=== PATIENT | male | born 1950 | race Caucasian/White ===

== ENCOUNTER 2019-06-24 16:09 | Inpatient (IN) ==
[2019-06-24] MEDS ORDERED: TYLENOL PO PRN (17:07)
[2019-06-24] MEDS ORDERED: PHENERGAN IV PRN (17:07)
[2019-06-24] MEDS ORDERED: SODIUM CHLORIDE 0.9% INJ PRN (17:07)
[2019-06-24] MEDS: NS 1,000 ML IV SCH (18:03)
[2019-06-24] MEDS: SOLU-MEDROL IV SCH (18:04)
[2019-06-24] MEDS: ROCEPHIN 1 GM in NS 50 ML IV SCH (18:04)
[2019-06-24] MEDS: LOVENOX SUBQ SCH (18:05)
[2019-06-24 18:55] LABS: BASO# 0.02 X1000 (0.0-0.2); BASO% 0.3 % (0.0-0.8); EOS# 0.05 X1000 (0.0-0.7); EOS% 0.9 % (0.0-10.0); HEMATOCRIT 41.8 % (42.0-52.0); HEMOGLOBIN 14.5 g/dL (14.0-18.0); LYMPH# 0.99 X1000 (1.2-3.4); MCH 32.8 PG (27-31); MCHC 34.7 g/dL (33-37); MCV 94.6 FL (81-99); MONO# 0.72 X1000 (0.11-0.59); MONO% 12.4 % (1.7-9.3); MPV 9.8 FL (7.4-10.4); NEUT# 4.04 X1000 (1.4-6.5); NEUT% 69.4 % (42.2-75.2); PLT 121 X1000 (130-400); RBC 4.42 XMIL (4.7-6.1); RDW 12.9 % (11.5-14.5); WBC 5.82 X1000 (4.8-10.8)
[2019-06-24 19:19] LABS: AGAP 15; BUN 10 mg/dL (8-22); CHLORIDE 101 mmol/L (98-107); COSMO 274; CREATININE 0.7 mg/dL (0.7-1.2); ESTIMATED GFR > 60; GLUCOSE 126 mg/dL (70-104); POTASSIUM 4.4 mmol/L (3.5-5.1); SODIUM 137 mmol/L (136-145); TCO2 21 mmol/L (25-35)
[2019-06-24] MEDS: DUONEB (A & A) INH SCH ×2 (19:30→23:12)
[2019-06-24] MEDS: KEPPRA PO SCH (20:34)
[2019-06-24] MEDS: RANEXA PO SCH (20:34)
[2019-06-24] MEDS: DESYREL PO PRN (20:34)
[2019-06-24] MEDS: COREG PO SCH (20:34)
[2019-06-24] MEDS: SYMBICORT 160/4.5 MICROGM INHALER INH SCH (23:12)
[2019-06-25] MEDS: SOLU-MEDROL IV SCH ×3 (00:53→18:04)
[2019-06-25] MEDS: DUONEB (A & A) INH SCH ×6 (03:47→23:23)
[2019-06-25] MEDS: SYMBICORT 160/4.5 MICROGM INHALER INH SCH ×2 (07:47→20:38)
[2019-06-25] MEDS ORDERED: PHENOBARBITAL PO SCH (09:00)
[2019-06-25] MEDS ORDERED: ZETIA PO SCH (09:00)
--- NOTE | 2019-06-25 09:21 | PROGRESS NOTE ---
DATE: 06/25/2019 SUBJECTIVE: Mr. Dugan continues with a persistent cough productive of clear to yellowish sputum, pleuritic chest pain with deep inspiration, mild shortness of breath and low grade fever with a T max of 99.2. Chest x-ray showed infiltrate in the left upper lung rajan. He had been taking Augmentin as an outpatient and has developed explosive watery diarrhea. OBJECTIVE: Vital Signs: Temperature 99.2 degrees, pulse 91, respirations 20, BP 137/76. Cardiovascular: Regular rate and rhythm. Lungs: Rhonchi in the left upper lung rajan with scattered wheezing with forced expiration. Abdomen: Soft, nontender, with active bowel sounds. Extremities: Without edema. ASSESSMENT AND PLAN: 1. Acute chronic obstructive pulmonary disease exacerbation complicated by community-acquired pneumonia. We will continue Symbicort 160/4.5 two puffs b.i.d., DuoNeb nebulizer treatments q.4 hours, IV Solu-Medrol and intravenous Rocephin. I will recheck a PA and lateral chest x- ray in the morning. 2. Diarrhea. I suspect the diarrhea is due to the Augmentin. I will check stool studies to make sure there is no infection. If there is no evidence of infection we will begin Lomotil on a p.r.n. basis. cc: Edwige Olvera MD
[2019-06-25] MEDS: COREG PO SCH ×2 (09:31→20:23)
[2019-06-25] MEDS: PLAVIX PO SCH (09:32)
[2019-06-25] MEDS: COZAAR PO SCH (09:32)
[2019-06-25] MEDS: KEPPRA PO SCH ×2 (09:32→20:23)
[2019-06-25] MEDS: ALDACTONE PO SCH (09:32)
[2019-06-25] MEDS: RANEXA PO SCH ×2 (09:32→20:23)
[2019-06-25] MEDS: FOLIC ACID PO SCH (09:33)
[2019-06-25] MEDS: NS 1,000 ML IV SCH (12:05)
[2019-06-25] MEDS: LOVENOX SUBQ SCH (18:03)
[2019-06-25] MEDS: ROCEPHIN 1 GM in NS 50 ML IV SCH (18:03)
[2019-06-25] MEDS ORDERED: LOMOTIL PO PRN (20:12)
[2019-06-25] MEDS: CRESTOR PO SCH (20:23)
[2019-06-25] MEDS: ZETIA PO SCH (20:23)
[2019-06-25] MEDS: PHENOBARBITAL PO SCH (20:24)
[2019-06-25] MEDS: DESYREL PO PRN (21:17)
[2019-06-26] MEDS: SOLU-MEDROL IV SCH ×3 (01:20→17:17)
[2019-06-26] MEDS: DUONEB (A & A) INH SCH ×5 (03:46→20:08)
[2019-06-26] MEDS: NS 1,000 ML IV SCH ×2 (04:20→17:04)
[2019-06-26] MEDS: SYMBICORT 160/4.5 MICROGM INHALER INH SCH ×2 (07:35→20:08)
[2019-06-26] MEDS ORDERED: FLAGYL PO SCH (08:30)
--- NOTE | 2019-06-26 08:54 | PROGRESS NOTE ---
DATE: 06/26/2019 SUBJECTIVE: Mr. Dugan was admitted to [facility] with an acute chronic obstructive pulmonary disease exacerbation complicated by community-acquired pneumonia. He continues with a persistent nonproductive cough and mild pleuritic chest pain. He is breathing more comfortably. O2 sats are ranging from 92 to 93 percent on room air. He is with complaint of explosive watery diarrhea. Stool studies were positive for C difficile antigen and toxin. OBJECTIVE: Vital Signs: Temperature 98.1 degrees, pulse 88, respirations 18, BP 131/74. CV: Regular rate and rhythm. Lungs: Faint crackles in the left base. Abdomen: Soft, nontender, with active bowel sounds. No hepatosplenomegaly. No abdominal bruits. ASSESSMENT AND PLAN: 1. Acute chronic obstructive pulmonary disease exacerbation with community-acquired pneumonia. We will continue DuoNeb nebulizer treatments, intravenous Solu-Medrol and intravenous Rocephin. I will check a portable chest x-ray today. 2. Clostridium difficile colitis. I will begin Vancocin 250 mg oral every 6 hours and Flagyl 500 mg oral every 6 hours. cc: Edwige Olvera MD
--- NOTE | 2019-06-26 09:06 | Diag Imaging Result Doc PS360 ---
CHEST-PORTABLE - 06/26/2019 INDICATION: acute copd flareup with pneumonia COMPARISON: 06/24/2019 FINDINGS: Stable CABG changes. The lungs are clear. Heart size is normal. No pneumothorax or pleural effusion. IMPRESSION: Negative exam. Electronically signed by Sven Khanna 06/26/2019 9:04 AM
[2019-06-26] MEDS: KEPPRA PO SCH ×2 (10:02→20:40)
[2019-06-26] MEDS: ALDACTONE PO SCH (10:03)
[2019-06-26] MEDS: RANEXA PO SCH ×2 (10:03→20:42)
[2019-06-26] MEDS: COREG PO SCH ×2 (10:03→20:42)
[2019-06-26] MEDS: FOLIC ACID PO SCH (10:03)
[2019-06-26] MEDS: PLAVIX PO SCH (10:03)
[2019-06-26] MEDS: COZAAR PO SCH (10:04)
[2019-06-26] MEDS: FLAGYL PO SCH ×3 (10:07→20:41)
[2019-06-26] MEDS: VANCOCIN PO SCH ×3 (10:07→20:42)
[2019-06-26] MEDS: ROCEPHIN 1 GM in NS 50 ML IV SCH (17:14)
[2019-06-26] MEDS: HUMALOG SUBQ SCH ×2 (17:16→22:15)
[2019-06-26] MEDS: LOVENOX SUBQ SCH (17:17)
[2019-06-26] MEDS: PHENOBARBITAL PO SCH ×2 (20:41→21:12)
[2019-06-26] MEDS: ZETIA PO SCH (20:41)
[2019-06-26] MEDS: CRESTOR PO SCH (20:42)
[2019-06-26] MEDS: DESYREL PO PRN (22:27)
[2019-06-27] MEDS: DUONEB (A & A) INH SCH ×7 (00:01→23:09)
[2019-06-27] MEDS: SOLU-MEDROL IV SCH ×2 (01:10→08:56)
[2019-06-27] MEDS: FLAGYL PO SCH ×4 (01:11→20:39)
[2019-06-27] MEDS: VANCOCIN PO SCH ×4 (01:11→20:38)
[2019-06-27] MEDS: NS 1,000 ML IV SCH (06:42)
[2019-06-27] MEDS: HUMALOG SUBQ SCH ×4 (06:43→22:02)
[2019-06-27] MEDS: COZAAR PO SCH (08:55)
[2019-06-27] MEDS: PLAVIX PO SCH (08:55)
[2019-06-27] MEDS: KEPPRA PO SCH ×2 (08:55→20:39)
[2019-06-27] MEDS: FOLIC ACID PO SCH (08:55)
[2019-06-27] MEDS: ALDACTONE PO SCH (08:55)
[2019-06-27] MEDS: RANEXA PO SCH ×2 (08:55→20:39)
[2019-06-27] MEDS: COREG PO SCH ×2 (08:56→20:39)
--- NOTE | 2019-06-27 10:01 | PROGRESS NOTE ---
DATE: 06/27/2019 SUBJECTIVE: Mr. Dugan is admitted to [facility] with an acute chronic obstructive pulmonary disease exacerbation complicated by community-acquired pneumonia. Clinically, he continues to improve. He has a minimal nonproductive cough. He is breathing comfortably, O2 saturations are ranging from 96 to 98 percent on room air. He had no longer has any pleuritic chest pain. His most recent chest x-ray showed resolution of the pneumonia. He does have C difficile colitis. Stool studies were positive for C difficile toxin and antigen. We started oral Vancocin and Flagyl yesterday. He is having fewer episodes of diarrhea. He denies any crampy abdominal pain. OBJECTIVE: Vital signs: He is afebrile. Vital signs are stable. Cardiovascular: Regular rate and rhythm. Lungs: Clear. Abdomen: Soft, nontender, with active bowel sounds. ASSESSMENT AND PLAN: 1. Acute chronic obstructive pulmonary disease exacerbation with community-acquired pneumonia. His pneumonia has resolved. I am going to stop the Rocephin. I will titrate downward on the Solu-Medrol to 40 mg IV q.12 hours. We will continue Symbicort and nebulizer treatments. 2. Clostridium difficile colitis. We will continue oral Vancocin and Flagyl for total of 2 weeks. I am going to add probiotics b.i.d. cc: Edwige Olvera MD
[2019-06-27] MEDS: CULTURELLE PO SCH ×2 (12:02→20:39)
[2019-06-27] MEDS: SYMBICORT 160/4.5 MICROGM INHALER INH SCH ×2 (16:17→20:04)
[2019-06-27] MEDS: LOVENOX SUBQ SCH (17:08)
[2019-06-27] MEDS: ROCEPHIN 1 GM in NS 50 ML IV SCH (17:08)
[2019-06-27] MEDS: CRESTOR PO SCH (20:39)
[2019-06-27] MEDS: ZETIA PO SCH (20:39)
[2019-06-27] MEDS: PHENOBARBITAL PO SCH (20:56)
[2019-06-27] MEDS ORDERED: SOLU-MEDROL IV SCH (21:00)
[2019-06-27] MEDS: DESYREL PO PRN (21:04)
[2019-06-28] MEDS: NS 1,000 ML IV SCH ×3 (00:57→20:27)
[2019-06-28] MEDS: FLAGYL PO SCH ×4 (02:47→20:22)
[2019-06-28] MEDS: VANCOCIN PO SCH ×4 (02:48→20:22)
[2019-06-28] MEDS: DUONEB (A & A) INH SCH ×5 (03:07→19:40)
[2019-06-28] MEDS: HUMALOG SUBQ SCH ×4 (06:20→21:00)
[2019-06-28] MEDS: ALDACTONE PO SCH (09:51)
[2019-06-28] MEDS: COZAAR PO SCH (09:51)
[2019-06-28] MEDS: PLAVIX PO SCH (09:51)
[2019-06-28] MEDS: KEPPRA PO SCH ×2 (09:51→20:22)
[2019-06-28] MEDS: COREG PO SCH ×2 (09:51→20:22)
[2019-06-28] MEDS: FOLIC ACID PO SCH (09:51)
[2019-06-28] MEDS: CULTURELLE PO SCH ×2 (09:52→20:21)
[2019-06-28] MEDS: ACTOS PO SCH (09:52)
[2019-06-28] MEDS: RANEXA PO SCH ×2 (09:54→20:22)
--- NOTE | 2019-06-28 10:02 | PROGRESS NOTE ---
DATE: 06/28/2019 SUBJECTIVE: Mr. Dugan was admitted to with acute chronic obstructive pulmonary disease exacerbation complicated by community-acquired pneumonia. Clinically, he continues to improve. He still has a minimal sporadic cough. He is breathing comfortably. O2 saturations are in the range of 94% to 97% on room air. He has C difficile colitis. He only had 4 loose stools yesterday. The stools are still watery with some semi-formed elements. He denies any nausea, vomiting or crampy abdominal pain. Appetite is still poor. Blood sugars are fluctuating. His sugars are ranging from 185 to 215. He is off metformin. OBJECTIVE: Vital Signs: Temperature 98.7 degrees, pulse 73, respirations 17, and blood pressure 140/76. Cardiovascular: Regular rate and rhythm. Lungs: Clear. Abdomen: Soft, nontender, with active bowel sounds. ASSESSMENT AND PLAN: 1. Acute chronic obstructive pulmonary disease exacerbation with community-acquired pneumonia. The pneumonia has resolved. We will continue Symbicort 2 puffs b.i.d. and DuoNeb nebulizer treatments. 2. Clostridium difficile colitis. We will continue oral Vancocin and Flagyl for a period of two weeks. I really would like to see the diarrhea resolved prior to discharge. 3. Type 2 exc-afbsvld-menveaeho diabetes mellitus. We will add Actos 30 mg daily. Continue pattern sugars and Humulin R sliding scale. cc: Edwige Olvera MD
[2019-06-28] MEDS: SYMBICORT 160/4.5 MICROGM INHALER INH SCH ×2 (16:31→19:40)
[2019-06-28] MEDS: LOVENOX SUBQ SCH (17:48)
[2019-06-28] MEDS: ROCEPHIN 1 GM in NS 50 ML IV SCH (17:48)
[2019-06-28] MEDS: ZETIA PO SCH (20:22)
[2019-06-28] MEDS: PHENOBARBITAL PO SCH (20:22)
[2019-06-28] MEDS: CRESTOR PO SCH (20:22)
[2019-06-29] MEDS: FLAGYL PO SCH ×2 (01:40→09:49)
[2019-06-29] MEDS: VANCOCIN PO SCH ×2 (01:40→09:48)
[2019-06-29] MEDS: DUONEB (A & A) INH SCH ×3 (03:29→11:03)
[2019-06-29] MEDS: HUMALOG SUBQ SCH ×2 (06:14→11:00)
[2019-06-29 07:58] VITALS: BP 138/87
[2019-06-29] MEDS: KEPPRA PO SCH (09:48)
[2019-06-29] MEDS: CULTURELLE PO SCH (09:49)
[2019-06-29] MEDS: RANEXA PO SCH (09:49)
[2019-06-29] MEDS: PLAVIX PO SCH (09:49)
[2019-06-29] MEDS: ACTOS PO SCH (09:49)
[2019-06-29] MEDS: FOLIC ACID PO SCH (09:49)
[2019-06-29] MEDS: ALDACTONE PO SCH (09:49)
[2019-06-29] MEDS: COREG PO SCH (09:49)
[2019-06-29] MEDS: COZAAR PO SCH (09:50)
[2019-06-29] MEDS ORDERED: PNEUMOVAX 23 IM ONE (10:50)
[2019-06-29] MEDS ORDERED: PREVNAR 13 IM ONE (11:03)
[2019-06-29] MEDS: SYMBICORT 160/4.5 MICROGM INHALER INH SCH (11:04)
--- NOTE | 2019-06-29 15:55 | DISCHARGE SUMMARY ---
ADMISSION DATE: 06/24/2019 DISCHARGE DATE: 06/29/2019 DISCHARGE DIAGNOSES: 1. Acute chronic obstructive pulmonary disease exacerbation with community-acquired pneumonia. 2. Clostridium difficile colitis. 3. Essential hypertension. 4. Ischemic heart disease without unstable angina. 5. Mixed hyperlipidemia. 6. Type 2 mvj-yzyltsn-mpoxifvyv diabetes mellitus uncomplicated. 7. Seizure disorder. DISCHARGE INSTRUCTIONS: 1. Return to clinic to see me, Dr. Sumanth Olvera, in 7 to 10 days for transition of care visit. 2. Activity as tolerated. 3. 1800 calorie ADA diet. MEDICATIONS: Metronidazole 500 mg q.6 hours for 11 days, Vancocin 250 mg q.6 hours for 11 days, Symbicort 160/4.5 two puffs b.i.d., Coreg 25 mg b.i.d., Plavix 75 mg daily, Zetia 10 mg daily, folic acid 1 mg daily, Culturelle 1 packet b.i.d., Keppra 500 mg b.i.d., losartan 25 mg daily, phenobarbital 32.4 mg at night, Ranexa 500 mg b.i.d., Crestor 40 mg at bedtime, spironolactone 25 mg daily, trazodone 50 mg at bedtime p.r.n. insomnia. DISCHARGE PHYSICAL EXAM: This is a well-developed, well-nourished 69-year-old gentleman no apparent distress. He is afebrile. Pulse 79, respirations 18, BP 138/87. CV: Regular rate and rhythm. Lungs: Clear. Abdomen: Soft, nontender, with active bowel sounds. Mr. Manuela Dugan presented to the office complaining of increasing shortness of breath, increasing work of breathing, cough productive of yellowish sputum, pleuritic chest pain and fevers high as 101 degrees. A chest x-ray demonstrated a left upper lobe infiltrate. The patient was admitted to [facility] where I treated him with supplemental O2, IV Solu-Medrol, DuoNeb nebulizer treatments and intravenous Rocephin. Over the course of the next several days we were able to wean him off O2 steroids without regression of his symptoms. Followup chest x-rays demonstrate resolution of the pneumonia. The Rocephin was discontinued. We did add Symbicort 160/4.5 two puffs b.i.d. for his underlying COPD. He is up-to-date on his pneumonia vaccines. He does have a history of type 2 uoz-uusgyam-xrfeqtwyw diabetes mellitus. Because of the diarrhea we stopped the metformin and switched him to Actos, his sugars were in the range of 103 to 140. He was continued on patterned sugars, Humulin R sliding scale. It is my hope that after treating the C. difficile colitis that we can resume the metformin and stop Actos. He was with complaint of crampy abdominal pain and explosive watery diarrhea. Stool studies were negative for C. difficile toxin and antigen. He was started on oral Vancocin and Flagyl. Over the course of the next several days his diarrhea improved significantly. He still was having 2 or 3 loose stools daily at the time of discharge but his stools were more semiformed. We will also continue lactobacillus for at least 1 month. Having reached maximum hospital benefit, the patient was discharged in stable condition. cc: Edwige Olvera MD
== END 2019-06-29 12:24 | disposition home or self-care (01) | DRG 190 ==
LOC: DIRADM 16:09 → 1N 16:43
PROVIDERS: ADMIT Internal Medicine; ATTEND Internal Medicine